=== PATIENT | female | born 1950 | race Caucasian/White ===

== ENCOUNTER 2023-05-10 11:38 | Inpatient (IN) ==
[2023-05-10] MEDS ORDERED: LORazepam 2 mg VIAL 1 ml IV PUSH ONE (11:54)
[2023-05-10] MEDS ORDERED: Lorazepam PYXIS KEY PRN (11:54)
[2023-05-10] MEDS ORDERED: LORazepam 2 mg VIAL 1 ml ONE (11:55)
[2023-05-10] MEDS ORDERED: Lactated Ringers 1000 ml BAG 1,000 ML IV ONE (11:55)
[2023-05-10] MEDS ORDERED: Droperidol 5 MG/2 ML 2 ML VIAL IV ONE ×2 (12:06→12:45)
[2023-05-10 12:32] LABS: ABS Basophils 0.1 10^3/uL (0.0-0.1); ABS Monocytes 0.9 10^3/uL (0.0-0.9); ABS Neutrophils 7.9 10^3/uL (1.5-7.6); Hematocrit 38.1 % (35-45); Hemoglobin 13.1 g/dL (11.5-14.3); Lymphocyte % 10.5 %; Mean Corpuscular Hemoglobin 33.1 pg (27-33); Mean Corpuscular Hgb Conc 34.4 g/dL (31-36); Mean Corpuscular Volume 96.2 fL (80-97); Mean Platelet Volume 6.8 fL (7.5-11.2); Platelet Count 351 10^3/uL (150-450); Red Blood Count 3.96 10^6/uL (3.63-4.92); Red Cell Distribution Width 13.7 % (12-17); White Blood Count 9.9 10^3/uL (3.8-11.8)
[2023-05-10] MEDS ORDERED: Acetaminophen IV 1 GM/100ML 1,000 MG/100 ML BAG IV ONE (12:37)
[2023-05-10 12:51] LABS: ALT 11 U/L (7-52); AST 23 U/L (13-39); Albumin 3.9 g/dL (3.2-5.2); Albumin/Globulin Ratio 1.3 (1-3); Alkaline Phosphatase 71 U/L (35-149); Anion Gap 12 mmol/L (2-16); Blood Urea Nitrogen 17 mg/dL (6-24); C Reactive Protein 3.34 mg/L (<8.01); CO2 Carbon Dioxide 27 mmol/L (22-32); Calcium 8.5 mg/dL (8.6-10.3); Chloride 90 mmol/L (101-111); Creatinine, Serum 0.96 mg/dL (0.51-0.95); Glucose 187 mg/dL (70-100); Potassium 3.7 mmol/L (3.5-5.0); Sodium 129 mmol/L (135-145); Total Protein 6.9 g/dL (6.4-8.9); eGFR CKD-EPI 62.1 (>60)
[2023-05-10 12:58] LABS: High Sens Troponin Baseline 97 pg/mL (<15)
[2023-05-10 13:00] LABS: INR 0.97 (0.83-1.13)
[2023-05-10 13:08] LABS: Alcohol, S < 13 mg/dL (<13)
[2023-05-10 13:24] LABS: TSH Ultra Thyroid Stim Horm 6.01 mcIU/mL (0.34-5.60)
[2023-05-10 13:52] LABS: Free T4 1.18 ng/dL (0.61-1.12)
[2023-05-10] MEDS ORDERED: Dexmedetomidine 1,000 MCG in NS 0.9% 250 ml 240 ML IV SCH (14:00)
[2023-05-10 14:17] LABS: Urine Appearance Clear; Urine Bilirubin Negative (Negative); Urine Blood 3+ (Negative); Urine Color Straw; Urine Glucose 3+(>=500 mg/dL) (Negative); Urine Ketones Negative (Negative); Urine Nitrite Negative (Negative); Urine Protein 2+(100 mg/dL) (Negative); Urine Specific Gravity 1.007 (1.002-1.030); Urine Urobilinogen Negative (Negative)
[2023-05-10 14:22] LABS: Urine Benzodiazepine Screen None Detected (None Detect); Urine Cannabinoids Screen None Detected (None Detect); Urine Opiates Screen None Detected (None Detect)
[2023-05-10 14:33] LABS: High Sensitivity Troponin 1 Hr 127 pg/mL (<15)
[2023-05-10 14:51] LABS: Urine Bacteria Absent (Absent); Urine Red Blood Cell 3+(>10/hpf) (Absent); Urine Squamous Epithelial Cell Present (Absent); Urine White Blood Cell Trace(0-5/hpf) (Absent)
[2023-05-10] MEDS ORDERED: Haloperidol 5 mg/ml SDV IV/IM 5 MG/ML AMP IV SLOW PU PRN (16:41)
[2023-05-10] MEDS ORDERED: Dextrose 50% Syringe 50 ml 25 GM/50 ML SYRINGE IV PUSH PRN (21:23)
[2023-05-10] MEDS ORDERED: Insulin GLARGINE 100 un/ml 10 ml VIAL SUBCUT ONE (21:44)
[2023-05-10] MEDS ORDERED: Enoxaparin 30 MG/0.3 ML SYR SUBCUT SCH (22:00)
[2023-05-11 05:56] LABS: ABS Basophils 0.1 10^3/uL (0.0-0.1); ABS Lymphocytes 1.8 10^3/uL (1.0-4.8); ABS Monocytes 0.7 10^3/uL (0.0-0.9); ABS Neutrophils 2.5 10^3/uL (1.5-7.6); ABS Nucleated RBC 0.01 10^3/ul; Eosinophil % 0.8 %; Hematocrit 36.3 % (35-45); Hemoglobin 12.7 g/dL (11.5-14.3); Lymphocyte % 34.9 %; Mean Corpuscular Hemoglobin 33.3 pg (27-33); Mean Corpuscular Hgb Conc 34.9 g/dL (31-36); Mean Corpuscular Volume 95.5 fL (80-97); Mean Platelet Volume 6.8 fL (7.5-11.2); Nucleated Red Blood Cells % 0.1 %/100WBC (0.0-0.8); Platelet Count 306 10^3/uL (150-450); Red Cell Distribution Width 13.6 % (12-17); White Blood Count 5.1 10^3/uL (3.8-11.8)
[2023-05-11 06:10] LABS: Calcium 8.2 mg/dL (8.6-10.3); Creatinine, Serum 0.83 mg/dL (0.51-0.95); Potassium 3.5 mmol/L (3.5-5.0); eGFR CKD-EPI 73.9 (>60)
[2023-05-11] MEDS ORDERED: Insulin GLARGINE 100 un/ml 10 ml VIAL SUBCUT SCH (21:00)
[2023-05-11] MEDS ORDERED: Enoxaparin 40 MG/0.4 ML SYR SUBCUT SCH (21:00)
[2023-05-12 07:54] LABS: ABS Basophils 0.1 10^3/uL (0.0-0.1); ABS Monocytes 0.8 10^3/uL (0.0-0.9); ABS Neutrophils 2.5 10^3/uL (1.5-7.6); ABS Nucleated RBC 0.01 10^3/ul; Eosinophil % 0.8 %; Hemoglobin 11.9 g/dL (11.5-14.3); Lymphocyte % 37.6 %; Mean Corpuscular Hemoglobin 33.4 pg (27-33); Mean Corpuscular Volume 95.5 fL (80-97); Mean Platelet Volume 7.1 fL (7.5-11.2); Nucleated Red Blood Cells % 0.1 %/100WBC (0.0-0.8); Platelet Count 286 10^3/uL (150-450); Red Blood Count 3.56 10^6/uL (3.63-4.92); Red Cell Distribution Width 13.6 % (12-17); White Blood Count 5.4 10^3/uL (3.8-11.8)
[2023-05-12 08:11] LABS: Calcium 8.3 mg/dL (8.6-10.3); Creatinine, Serum 0.87 mg/dL (0.51-0.95); Potassium 3.6 mmol/L (3.5-5.0); eGFR CKD-EPI 69.9 (>60)
[2023-05-12] MEDS ORDERED: Gadoteridol (CONTRAST) 279.3 MG/ML 10 ML IV ONE (11:28)
[2023-05-12 14:14] VITALS: BP 125/52
== END 2023-05-12 16:10 | disposition home or self-care (01) | DRG 71 ==
LOC: ED 11:38 → SUATTDRO 15:52 → EDHOLD 15:52 → ICU 19:34 → MEDTELE 05-11 16:09
PROVIDERS: ADMIT Internal Medicine Pulmonary Disease; ATTEND Internal Medicine